=== PATIENT | male | born 1950 | race Caucasian/White ===

== ENCOUNTER 2017-04-24 14:30 | Outpatient (RCR) | payer OTHER ==
--- NOTE | 2017-01-26 16:26 | PT INITIAL EVALUATION ---
MEDICAL DIAGNOSIS: R shoulder rotator cuff repair TREATMENT DIAGNOSIS: Same DATE OF ONSET: 01/11/17 SUBJECTIVE: Trevin Glasgow presents to physical therapy status post R shoulder rotator cuff repair on the December. He reports that he cannot tolerate wearing the sling anymore and did not present to outpatient PT with the sling donned. He denies any pain in his R shoulder unless he moves the R shoulder and then reports a sharp pain or an ache. He reports that he was encouraged to wear the sling and to not move the R shoulder since they do not want him to reinjury his R shoulder, however, he was confused on what movements he could or could not do with his R UE. Furthermore, he states that he has more pain or discomfort at night. REHAB PROBLEM LIST: Increased Pain Decreased ROM Decreased Strength Decreased Endurance Decreased Function Decreased ADL's PREVIOUS MEDICAL HISTORY: See EMR OCCUPATION: Retired OBJECTIVE: Incisional ports healing well and no signs or symptoms of infection. Posture: He demonstrates minimal B rounded shoulders, increased thoracic kyphosis, and decreased lumbar lordosis. ROM: PROM of R shoulder: flexion: 95 degrees, abduction: 90 degrees, IR: 90 degrees, ER: 20 degrees. He demonstrated empty end feels in all directions. Strength: Did not test due to recent surgical intervention Palpation: TTP over insertional point of supraspinatus ASSESSMENT: Trevin will benefit from skilled physical therapy addressing the listed impairments to improve function and return to prior level of function. Short Term Goals 4 weeks: Pt will improve PROM from baseline to full PROM in R shoulder flexion , abduction, ER, IR, and scaption to improve function and QOL. 6 weeks: Pt will improve AAROM from baseline to full AAROM in R shoulder flexion, abduction, ER, IR, and scaption to improve function and QOL. 8 weeks: Pt will improve AROM from baseline to full AROM in R shoulder flexion , abduction, ER, IR, and scaption to improve function and QOL. 12 weeks: Pt will be able to demonstrate improvements in his R RTC and R periscapular strength from baseline to 4/5 to improve function and QOL. 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 Patient's Goals return to shooting as quick as possible PLAN: Patient to be seen for Manual Therapy/STM/MET Strengthening/condition Ice/Heat Range of Motion Spinal Stabilization Work Hardening/Cond Stretching Iontophoresis Neuromuscular Re-ed Closed Chain Program Electrical Stim Posture/Body mechanics Home Exercise Program Therapeutic Activities 2-3x/week for 4 Months If you have any questions, comments, or concerns about this report or plan, please contact me at . Thank you, Juan Carlos Palma, PT, DPT MTDD
--- NOTE | 2017-03-01 15:55 | PT PLAN OF CARE ---
Physician: [facility] Patient is being seen: 2x-3x/week Therapist: Juan Carlos Palma, PT, DPT Medical Diagnosis: R shoulder rotator cuff repair Treatment Diagnosis: Same Date of Onset: 01/11/17 Date of Initial Evaluation: 01/25/17 Date patient was last seen: 03/01/17 Number of treatments: 10 Number of cancellations/No shows: 0 INTERVENTIONS: Manual Therapy/STM/MET Strengthening/condition Ice/Heat Range of Motion Spinal Stabilization Work Hardening/Cond Stretching Iontophoresis Neuromuscular Re-ed Closed Chain Program Electrical Stim Posture/Body mechanics Home Exercise Program Therapeutic Activities GOALS: 4 weeks: Pt will improve PROM from baseline to full PROM in R shoulder flexion , abduction, ER, IR, and scaption to improve function and QOL. 6 weeks: Pt will improve AAROM from baseline to full AAROM in R shoulder flexion, abduction, ER, IR, and scaption to improve function and QOL. 8 weeks: Pt will improve AROM from baseline to full AROM in R shoulder flexion , abduction, ER, IR, and scaption to improve function and QOL. 12 weeks: Pt will be able to demonstrate improvements in his R RTC and R periscapular strength from baseline to 4/5 to improve function and QOL. 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 PATIENT'S GOAL: return to shooting as quick as possible Status of Patient's Goals: Progressing well Patient Compliance: Good Prognosis: Good Reasons for continuing therapy: This is a progress note for Trevin Glasgow. He reports that he is feeling much better and is less painful. He has finally learned through a lot of education to not overdo it with his R shoulder at home and is now starting to demonstrate full PROM-AROM and decreased pain. We will continue to improve and progress based on healing parameters/patient tolerance to return him to prior level of function based on the proper healing. Posture: He demonstrates minimal B rounded shoulders, increased thoracic kyphosis, and decreased lumbar lordosis. ROM: PROM of R shoulder: flexion: 180 degrees, abduction: 180 degrees, IR: 90 degrees, ER: 80 degrees. He demonstrated empty end feels in all directions. AROM: flexion: 180 degrees, abduction: 180 degrees, ER: 75 deg, IR: 90 degrees Palpation: TTP over insertional point of supraspinatus If you have any questions, please contact me at [phone]. Thank you, Juan Carlos Palma, PT, DPT MTDD
--- NOTE | 2017-04-11 13:56 | PT PLAN OF CARE ---
Physician: [facility] Patient is being seen: 2x/week Therapist: Juan Carlos Palma, PT, DPT Treatment Diagnosis: Same Date of Onset: 01/11/17 Date of Initial Evaluation: 01/25/17 Date patient was last seen: 04/10/17 Number of treatments: 19 Number of cancellations/No shows: 0 INTERVENTIONS: Manual Therapy/STM/MET Strengthening/condition Ice/Heat Range of Motion Spinal Stabilization Work Hardening/Cond Stretching Iontophoresis Neuromuscular Re-ed Closed Chain Program Electrical Stim Posture/Body mechanics Home Exercise Program Therapeutic Activities GOALS: 4 weeks: Pt will improve PROM from baseline to full PROM in R shoulder flexion , abduction, ER, IR, and scaption to improve function and QOL. MET 6 weeks: Pt will improve AAROM from baseline to full AAROM in R shoulder flexion, abduction, ER, IR, and scaption to improve function and QOL. MET 8 weeks: Pt will improve AROM from baseline to full AROM in R shoulder flexion , abduction, ER, IR, and scaption to improve function and QOL. MET 12 weeks: Pt will be able to demonstrate improvements in his R RTC and R periscapular strength from baseline to 4/5 to improve function and QOL. 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 Progressing PATIENT'S GOAL: return to shooting as quick as possible Status of Patient's Goals: Progressing well Patient Compliance: Good Prognosis: Good Reasons for continuing therapy: This is a progress note for Trevin Glasgow. He reports that he is doing well. He states that it feels like it catches and then he is able to move it in a certain direction and then is able to move it in all direction without any pain or catching. He reports that has an increase in R shoulder soreness, which is atypical the last few weeks. He reports that he must have slept wrong on his shoulder or something. Over the course of his physical therapy he has demonstrated the following improvements: increased PROM- AROM of R shoulder in all direction and is completely full PROM-AROM in all directions, reduction of R shoulder pain, decreased quickdash from 80% to 27% to 18%, and increased periscapular and RTC strength. We will continue to improve and progress based on healing parameters/patient tolerance to return him to prior level of function based on the proper healing. Posture: He demonstrates minimal B rounded shoulders, increased thoracic kyphosis, and decreased lumbar lordosis. ROM: PROM of R shoulder: flexion: 180 degrees, abduction: 180 degrees, IR: 90 degrees, ER: 85 degrees. He demonstrated empty end feels in abduction and ER. AROM: flexion: 180 degrees, abduction: 180 degrees, ER: 85 deg, IR: 90 degrees Palpation: TTP over insertional point of supraspinatus If you have any questions, please contact me at [phone]. Thank you, Juan Carlos Palma, PT, DPT MTDD
== END 2017-04-25 ==
LOC: PT 14:30
PROVIDERS: ATTEND Nurse Practitioner Family
DX: Z47.89 Encounter for other orthopedic aftercare (principal); M75.111 Incomplete rotator cuff tear or rupture of right shoulder, not specified as traumatic; M25.511 Pain in right shoulder
CPT/HCPCS: 97162

== ENCOUNTER 2017-04-28 15:01 | Outpatient (RCR) | payer OTHER ==
--- NOTE | 2017-04-27 14:21 | PT PLAN OF CARE ---
Physician: [facility] Patient is being seen: 2x/week Therapist: Juan Carlos Palma, PT, DPT Medical Diagnosis: R shoulder rotator cuff repair Treatment Diagnosis: Same Date of Onset: 01/11/17 Date of Initial Evaluation: 01/25/17 Date patient was last seen: 04/26/17 Number of treatments: 22 Number of cancellations/No shows: 0 INTERVENTIONS: Manual Therapy/STM/MET Strengthening/condition Ice/Heat Range of Motion Spinal Stabilization Work Hardening/Cond Stretching Iontophoresis Neuromuscular Re-ed Closed Chain Program Electrical Stim Posture/Body mechanics Home Exercise Program Therapeutic Activities GOALS: 4 weeks: Pt will improve PROM from baseline to full PROM in R shoulder flexion , abduction, ER, IR, and scaption to improve function and QOL. MET 6 weeks: Pt will improve AAROM from baseline to full AAROM in R shoulder flexion, abduction, ER, IR, and scaption to improve function and QOL. MET 8 weeks: Pt will improve AROM from baseline to full AROM in R shoulder flexion , abduction, ER, IR, and scaption to improve function and QOL. MET 12 weeks: Pt will be able to demonstrate improvements in his R RTC and R periscapular strength from baseline to 4/5 to improve function and QOL. 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 Progressing PATIENT'S GOAL: return to shooting as quick as possible Status of Patient's Goals: Progressing well Patient Compliance: Good Prognosis: Good Reasons for continuing therapy: This is a progress note for Trevin Glasgow. He reports that he is doing well. He states that it feels like it catches and then he is able to move it in a certain direction and then is able to move it in all direction without any pain or catching. He reports that has an increase in R shoulder soreness, which is atypical the last few weeks. He reports that he must have slept wrong on his shoulder or something. Over the course of his physical therapy he has demonstrated the following improvements: increased PROM- AROM of R shoulder in all direction and is completely full PROM-AROM in all directions, reduction of R shoulder pain, decreased quickdash from 80% to 27% to 18%, and increased periscapular and RTC strength. We will continue to improve and progress based on healing parameters/patient tolerance to return him to prior level of function based on the proper healing. Posture: He demonstrates minimal B rounded shoulders, increased thoracic kyphosis, and decreased lumbar lordosis. ROM: PROM of R shoulder: flexion: 180 degrees, abduction: 180 degrees, IR: 90 degrees, ER: 85 degrees. He demonstrated empty end feels in abduction and ER. AROM: flexion: 180 degrees, abduction: 180 degrees, ER: 85 deg, IR: 90 degrees Palpation: TTP over insertional point of supraspinatus If you have any questions, please contact me at [phone]. Thank you, Juan Carlos Palma, PT, DPT MTDD
--- NOTE | 2017-04-28 16:11 | PT PLAN OF CARE ---
Physician: [facility] Patient is being seen: 2x/week Therapist: Juan Carlos Palma, PT, DPT Medical Diagnosis: R shoulder rotator cuff repair Treatment Diagnosis: Same Date of Onset: 01/11/17 Date of Initial Evaluation: 01/25/17 Date patient was last seen: 04/28/17 Number of treatments: 23 Number of cancellations/No shows: 0 INTERVENTIONS: Manual Therapy/STM/MET Strengthening/condition Ice/Heat Range of Motion Spinal Stabilization Work Hardening/Cond Stretching Iontophoresis Neuromuscular Re-ed Closed Chain Program Electrical Stim Posture/Body mechanics Home Exercise Program Therapeutic Activities GOALS: 4 weeks: Pt will improve PROM from baseline to full PROM in R shoulder flexion , abduction, ER, IR, and scaption to improve function and QOL. MET 6 weeks: Pt will improve AAROM from baseline to full AAROM in R shoulder flexion, abduction, ER, IR, and scaption to improve function and QOL. MET 8 weeks: Pt will improve AROM from baseline to full AROM in R shoulder flexion , abduction, ER, IR, and scaption to improve function and QOL. MET 12 weeks: Pt will be able to demonstrate improvements in his R RTC and R periscapular strength from baseline to 4/5 to improve function and QOL. 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 Progressing PATIENT'S GOAL: return to shooting as quick as possible Status of Patient's Goals: Progressing well Patient Compliance: Good Prognosis: Good Reasons for continuing therapy: This is a progress note for Trevin Glasgow. He reports that he is doing well. He reports that he continues to have an ache with moving his R UE behind his back such as looping his belt and washing his back. He rates the ache to be 5/10 when he is looping his belt. Furthermore, he reports that he has an ache with re-holstering his handgun and rates his ache to be 3/10. He rates his resting pain to be 0/10. He states that he feels like his PROM-AROM of his R shoulder to be very good and functional. He reports that he continues to do his stretches daily and his band work 3-4x/week. Furthermore , he reports that he will be leaving town until the end of May and would not be able to return to PT around the week of June. He also reports that he would like to follow up with us around the week of June, however, he reports that his script expires at the end of April and would like to see if he could extend it since he has not utilized all of his visits. Over the course of his physical therapy he has demonstrated the following improvements: increased PROM-AROM of R shoulder in all direction and is completely full PROM- AROM in all directions, reduction of R shoulder pain, decreased quickdash from 80% to 27% to 18% to 11%, and increased periscapular and RTC strength. He demonstrated increased R shoulder extension combined with IR AROM following repeated horizontal adduction and decreased pain with eccentric lowering of R shoulder flexion. He demonstrated improved RTC and periscapular strength, however, he continued to have pain with the MMT's especially with abduction. With abduction, he demonstrated 4/5 with pain, flexion, scaption, IR, and ER: 4+ /5 with minimal pain. Furthermore, he demonstrated full PROM-AROM into flexion, extension, abduction, IR, ER, and scaption. We would like to follow up with him following his trip that will end around May, however, we will need to have his script ended through July 2017. We will continue to improve and progress based on healing parameters/patient tolerance to return him to prior level of function based on the proper healing. Posture: He demonstrates minimal B rounded shoulders, increased thoracic kyphosis, and decreased lumbar lordosis. ROM: PROM of R shoulder: flexion: 180 degrees, abduction: 180 degrees, IR: 90 degrees, ER: 90 degrees. He demonstrated empty end feels in abduction and ER. AROM: flexion: 180 degrees, abduction: 180 degrees, ER: 85 deg, IR: 90 degrees Palpation: TTP over insertional point of supraspinatus If you have any questions, please contact me at [phone]. Thank you, Juan Carlos Palma, PT, DPT MARYLOU
--- NOTE | 2017-05-26 16:40 | PT PLAN OF CARE ---
Physician: [facility]- Patient is being seen: 2x/week Therapist: Juan Carlos Palma, PT, DPT Medical Diagnosis: R shoulder rotator cuff repair Treatment Diagnosis: Same Date of Onset: 01/11/17 Date of Initial Evaluation: 01/25/17 Date patient was last seen: 04/28/17 Number of treatments: 23 Number of cancellations/No shows: 0 INTERVENTIONS: Manual Therapy/STM/MET Strengthening/condition Ice/Heat Range of Motion Spinal Stabilization Work Hardening/Cond Stretching Iontophoresis Neuromuscular Re-ed Closed Chain Program Electrical Stim Posture/Body mechanics Home Exercise Program Therapeutic Activities GOALS: 4 weeks: Pt will improve PROM from baseline to full PROM in R shoulder flexion , abduction, ER, IR, and scaption to improve function and QOL. MET 6 weeks: Pt will improve AAROM from baseline to full AAROM in R shoulder flexion, abduction, ER, IR, and scaption to improve function and QOL. MET 8 weeks: Pt will improve AROM from baseline to full AROM in R shoulder flexion , abduction, ER, IR, and scaption to improve function and QOL. MET 12 weeks: Pt will be able to demonstrate improvements in his R RTC and R periscapular strength from baseline to 4/5 to improve function and QOL. 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 Progressing PATIENT'S GOAL: return to shooting as quick as possible Status of Patient's Goals: Progressing well Patient Compliance: Good Prognosis: Good Reasons for continuing therapy: This is a progress note for Trevin Glasgow. He reports that he is doing well. He reports that he continues to have an ache with moving his R UE behind his back such as looping his belt and washing his back. He rates the ache to be 5/10 when he is looping his belt. Furthermore, he reports that he has an ache with re-holstering his handgun and rates his ache to be 3/10. He rates his resting pain to be 0/10. He states that he feels like his PROM-AROM of his R shoulder to be very good and functional. He reports that he continues to do his stretches daily and his band work 3-4x/week. Furthermore , he reports that he will be leaving town until the end of May and would not be able to return to PT around the week of June. He also reports that he would like to follow up with us around the week of June, however, he reports that his script expires at the end of April and would like to see if he could extend it since he has not utilized all of his visits. Over the course of his physical therapy he has demonstrated the following improvements: increased PROM-AROM of R shoulder in all direction and is completely full PROM- AROM in all directions, reduction of R shoulder pain, decreased quickdash from 80% to 27% to 18% to 11%, and increased periscapular and RTC strength. He demonstrated increased R shoulder extension combined with IR AROM following repeated horizontal adduction and decreased pain with eccentric lowering of R shoulder flexion. He demonstrated improved RTC and periscapular strength, however, he continued to have pain with the MMT's especially with abduction. With abduction, he demonstrated 4/5 with pain, flexion, scaption, IR, and ER: 4+ /5 with minimal pain. Furthermore, he demonstrated full PROM-AROM into flexion, extension, abduction, IR, ER, and scaption. We would like to follow up with him following his trip that will end around May, however, we will need to have his script ended through July 2017. We will continue to improve and progress based on healing parameters/patient tolerance to return him to prior level of function based on the proper healing. Since, his authorization was not extended prior to the deadline, we will discharge him from PT and hopefully he will be able to reauthorized so that we can follow up with him following vacation. Posture: He demonstrates minimal B rounded shoulders, increased thoracic kyphosis, and decreased lumbar lordosis. ROM: PROM of R shoulder: flexion: 180 degrees, abduction: 180 degrees, IR: 90 degrees, ER: 90 degrees. He demonstrated empty end feels in abduction and ER. AROM: flexion: 180 degrees, abduction: 180 degrees, ER: 85 deg, IR: 90 degrees Palpation: TTP over insertional point of supraspinatus If you have any questions, please contact me at [phone]. Thank you, Juan Carlos Palma, PT, DPT MTDD
== END 2017-04-28 18:00 | disposition home or self-care (01) ==
LOC: PT 15:01
PROVIDERS: ATTEND Nurse Practitioner Family
DX: Z47.89 Encounter for other orthopedic aftercare (principal); M75.111 Incomplete rotator cuff tear or rupture of right shoulder, not specified as traumatic; M25.511 Pain in right shoulder